=== PATIENT | male | born 1980 | race Caucasian/White ===

== ENCOUNTER 2019-03-05 19:40 | Emergency (ER) | payer MEDICAID, OTHER ==
[2019-03-05] MEDS: ACETAMINOPHEN 325 MG TAB PO (23:07)
== END 2019-03-05 23:48 | disposition home or self-care (01) ==
LOC: FTE 19:40
DX: J34.89 Other specified disorders of nose and nasal sinuses (principal)
CPT/HCPCS: 70160; 99283-25